=== PATIENT | male | born 2000 | race Caucasian/White ===

== ENCOUNTER 2019-07-13 17:54 | Emergency (ER) | payer BC ==
--- NOTE | 2019-07-13 18:08 | EDM.PDOC ---
ED HPI GENERAL MEDICAL PROBLEM - General Chief Complaint: Lower Extremity Injury/Pain Stated Complaint: PT HURT LT LEG Time Seen by Provider: 07/13/19 17:55 - History of Present Illness INITIAL COMMENTS - FREE TEXT/NARRATIVE: HISTORY AND PHYSICAL: History of present illness: This is a 19-year-old white male presents with concern of left knee injury that occurred yesterday he said some instability and discomfort subsequent. He denies other trauma concern he states this occurred when he jumped and landed wrong Review of systems: As per history of present illness and below otherwise all systems reviewed and negative. Past medical history: As per history of present illness and as reviewed below otherwise noncontributory. Surgical history: As per history of present illness and as reviewed below otherwise noncontributory. Social history: No reported history of drug or alcohol abuse. Family history: As per history of present illness and as reviewed below otherwise noncontributory. Physical exam: HEENT: Atraumatic, normocephalic, pupils reactive, negative for conjunctival pallor or scleral icterus, mucous membranes moist, throat clear, neck supple, nontender, trachea midline. Lungs: Clear to auscultation, breath sounds equal bilaterally, chest nontender. Heart: S1S2, regular, negative for clicks, rubs, or JVD. Abdomen: Soft, nondistended, nontender. Negative for masses or hepatosplenomegaly. Negative for costovertebral tenderness. Pelvis: Stable nontender. Genitourinary: Deferred. Rectal: Deferred. Extremities: Left knee has small swelling and mild pain this is not well localized is no crepitation joints is grossly stable CMS in neurovascular exam are unremarkable Neuro: Awake, alert, oriented. Cranial nerves II through XII unremarkable. Cerebellum unremarkable. Motor and sensory unremarkable throughout. Exam nonfocal. Diagnostics: X-ray left knee Therapeutics: To be determined Impression: 1 acute left knee injury Definitive disposition and diagnosis as appropriate pending reevaluation and review of above. Review of Systems - Review of Systems Review Of Systems: ROS reveals no pertinent complaints other than HPI. ED EXAM, GENERAL - Physical Exam Exam: See Below (See dictation) Departure - Departure Time of Disposition: 18:06 Disposition: Home, Self-Care 01 Condition: Good Clinical Impression: Knee injury - Discharge Information Additional Instructions: The following information is given to patients seen in the emergency department who are being discharged to home. This information is to outline your options for follow-up care. We provide all patients seen in our emergency department with a follow-up referral. The need for follow-up, as well as the timing and circumstances, are variable depending upon the specifics of your emergency department visit. If you don't have a primary care physician on staff, we will provide you with a referral. We always advise you to contact your personal physician following an emergency department visit to inform them of the circumstance of the visit and for follow-up with them and/or the need for any referrals to a consulting specialist. The emergency department will also refer you to a specialist when appropriate. This referral assures that you have the opportunity for followup care with a specialist. All of these measure are taken in an effort to provide you with optimal care, which includes your followup. Under all circumstances we always encourage you to contact your private physician who remains a resource for coordinating your care. When calling for followup care, please make the office aware that this follow-up is from your recent emergency room visit. If for any reason you are refused follow-up, please contact the [facility] emergency department at and asked to speak to the emergency department charge nurse. [facility] Professional [facility] [address] [place] [address], [address] [place] [address] Knee brace as directed crutches as directed Motrin/Tylenol as directed follow- up orthopedic surgery above call schedule routine appointment return as needed as discussed
--- NOTE | 2019-07-13 18:59 | CR ---
Indication: Pain. Injury. Technique: Three views of the left knee were obtained. Comparison: None Findings: No acute fracture or subluxation is identified. The joint spaces are well maintained. Impression: No acute fracture. Dictated by Akanksha Rhodes MD @ Jul 13 2019 6:57PM Signed by Dr. Akanksha Rhodes @ Jul 13 2019 6:57PM
== END 2019-07-13 18:55 | disposition home or self-care (01) ==
LOC: MW.ED 17:54
DX: S89.92XA Unspecified injury of left lower leg, initial encounter (principal); W17.89XA Other fall from one level to another, initial encounter; Y93.61 Activity, american tackle football
CPT/HCPCS: 73562-26-LT; 73562-LT; 99282; 99283-25

== ENCOUNTER 2019-11-18 11:16 | Day surgery (SDC) | payer BC ==
[~2019-11-18 11:16] MED LIST: 50% Dextrose in Water 50 ML Syringe IVPUSH PRN; Albuterol 0.083% 2.5 MG/3 ML Neb Soln NEB PRN; Atropine 0.1 MG/ML 10 ML Syringe IVPUSH PRN; Bupivacaine 0.5% 30 ML SDV ONE; Clindamycin Phosphate in D5W 900 MG in Premix Bag 1 BAG IV SCH; EPINEPHrine 1:10,000 1 MG/10 ML Syringe IVPUSH PRN; Lactated Ringers 1,000 ML IV SCH; Lidocaine 2% 5 ML SDV ONE; Midazolam 1 MG/ML 2 ML SDV ONE; Naloxone 0.4 MG/ML Syringe IVPUSH PRN; Ondansetron 4 MG/2 ML SDV ONE; Propofol 200 MG/20 ML SDV ONE; fentaNYL 100 MCG/2 ML SDV IVPUSH PRN; fentaNYL 250 MCG/5 ML SDV ONE
--- NOTE | 2019-11-18 12:15 | PCM.PREANE ---
Preanesthetic Assessment - Anesthesia/Transfusion/Family Hx Anesthesia History: Prior Anesthesia Without Reaction Family History of Anesthesia Reaction: No Transfusion History: No Prior Transfusion(s) - Review of Systems General: No Symptoms Pulmonary: No Symptoms Cardiovascular: No Symptoms Gastrointestinal: No Symptoms Neurological: No Symptoms - Physical Assessment NPO Status Date: 11/17/19 Vital Signs: Last Vital Signs Temp 96.8 F 11/18/19 11:30 Pulse 86 11/18/19 11:30 Resp 18 11/18/19 11:30 BP 157/73 H 11/18/19 11:30 Pulse Ox 98 11/18/19 11:30 Height: 5 ft 11 in Weight: 90.718 kg ASA Class: 1 Mental Status: Alert & Oriented x3 Airway Class: Mallampati = 2 Dentition: Reports: Normal Dentition ROM/Head Extension: Full Lungs: Clear to Auscultation, Normal Respiratory Effort Cardiovascular: Regular Rate, Regular Rhythm - Allergies Allergies/Adverse Reactions: Allergies Allergy/AdvReac Type Severity Reaction Status Date / Time codeine Allergy Hallucinati Verified 11/12/19 12:23 ons Penicillins Allergy Hives Verified 11/12/19 12:23 sulfamethoxazole Allergy Hives Verified 11/12/19 12:23 [From Bactrim] trimethoprim [From Bactrim] Allergy Hives Verified 11/12/19 12:23 - Blood Blood Available: No - Anesthesia Plan Pre-Op Medication Ordered: None - Acknowledgements Anesthesia Type Planned: General Anesthesia Pt an Appropriate Candidate for the Planned Anesthesia: Yes Alternatives and Risks of Anesthesia Discussed w Pt/Guardian: Yes Pt/Guardian Understands and Agrees with Anesthesia Plan: Yes Additional Comments: pmh: none PLAN: ga/lma PreAnesthesia Questionnaire HEENT History: Reports: Other (See Below) Other HEENT History: wears glasses Cardiovascular History: Reports: None Respiratory History: Reports: None Gastrointestinal History: Reports: None Genitourinary History: Reports: None Musculoskeletal History: Reports: None Neurological History: Reports: None Psychiatric History: Reports: None Endocrine/Metabolic History: Reports: None Hematologic History: Reports: None Immunologic History: Reports: None Oncologic (Cancer) History: Reports: None Dermatologic History: Reports: None - Past Surgical History Head Surgeries/Procedures: Reports: None HEENT Surgical History: Reports: Myringotomy w Tube(s), Tonsillectomy Cardiovascular Surgical History: Reports: None Respiratory Surgical History: Reports: None GI Surgical History: Reports: None Male Surgical History: Reports: None Endocrine Surgical History: Reports: None Neurological Surgical History: Reports: None Musculoskeletal Surgical History: Reports: None Oncologic Surgical History: Reports: None Dermatological Surgical History: Reports: None - SUBSTANCE USE Smoking Status *Q: Never Smoker Recreational Drug Use History: No - HOME MEDS Home Medications: Home Meds Acetaminophen/oxyCODONE [Percocet 325-5 MG] 1 each PO TID #21 tab 11/18/19 [Rx] - CURRENT (IN HOUSE) MEDS Current Meds: Current Medications Albuterol (Proventil Neb Soln) 2.5 mg NEB ONETIME PRN PRN Reason: Wheezing Atropine Sulfate (Atropine 0.1 Mg/Ml) 0.5 mg IVPUSH ASDIRECTED PRN PRN Reason: Hypo-perfusion Atropine Sulfate (Atropine 0.1 Mg/Ml) 1 mg IVPUSH ASDIRECTED PRN PRN Reason: Hypo-Perfusion Dextrose/Water (Dextrose 50% In Water) 50 ml IVPUSH ASDIRECTED PRN PRN Reason: Hypoglycemia Epinephrine HCl (Epinephrine 1:10,000) 1 mg IVPUSH ASDIRECTED PRN PRN Reason: ACLS Guidelines Fentanyl (Sublimaze) 50 - 100 mcg IVPUSH Q5M PRN PRN Reason: Pain Clindamycin Phosphate 900 mg/ (Premix) 50 mls @ 100 mls/hr IV ONCALL [facility] Last Admin: 11/18/19 12:11 Dose: 100 mls/hr Lactated Ringer's (Ringers, Lactated) 1,000 mls @ 100 mls/hr IV ASDIRECTED [facility] Last Admin: 11/18/19 12:09 Dose: 100 mls/hr Naloxone HCl (Narcan) 0.1 mg IVPUSH ASDIRECTED PRN PRN Reason: Respiratory Depression Discontinued Medications Bupivacaine HCl (Marcaine 0.5%) Confirm Administered Dose 30 ml .ROUTE .STK-MED ONE Stop: 11/18/19 10:31 Fentanyl (Sublimaze) Confirm Administered Dose 250 mcg .ROUTE .STK-MED ONE Stop: 11/18/19 09:45 Lidocaine (Xylocaine-Mpf 2%) Confirm Administered Dose 5 ml .ROUTE .STK-MED ONE Stop: 11/18/19 09:45 Midazolam HCl (Versed 1 Mg/Ml) Confirm Administered Dose 2 mg .ROUTE .STK-MED ONE Stop: 11/18/19 09:45 Ondansetron HCl (Zofran) Confirm Administered Dose 4 mg .ROUTE .STK-MED ONE Stop: 11/18/19 09:45 Propofol (Diprivan 20 Ml) Confirm Administered Dose 200 mg .ROUTE .STK-MED ONE Stop: 11/18/19 09:45
[2019-11-18] MEDS ORDERED: HYDROmorphone 2 MG/ML Syringe ONE (13:22)
[2019-11-18] MEDS ORDERED: fentaNYL 100 MCG/2 ML SDV ONE ×2 (14:05→14:29)
--- NOTE | 2019-11-18 14:31 | PCM.OPNOTE ---
- General Post-Op/Procedure Note Date of Surgery/Procedure: 11/18/19 Operative Procedure(s): left knee acl reconstruction with allograft Pre Op Diagnosis: left knee acl tear Post-Op Diagnosis: Same Anesthesia Technique: General ET Tube Primary Surgeon: Kwame Mancilla Electrician Wiring: Carmenza Brambila EBIleana in mLs: 25 Complications: None Condition: Good
--- NOTE | 2019-11-18 15:44 | PCM.POSTAN ---
POST ANESTHESIA ASSESSMENT - MENTAL STATUS Mental Status: Alert - VITAL SIGNS Vital Signs: Last Vital Signs Temp 36.8 C 11/18/19 14:53 Pulse 109 H 11/18/19 15:38 Resp 20 11/18/19 15:38 BP 131/67 11/18/19 15:38 Pulse Ox 96 11/18/19 15:38 - RESPIRATORY Respiratory Status: Respiratory Rate WNL - CARDIOVASCULAR CV Status: Pulse Rate WNL - GASTROINTESTINAL GI Status: No Symptoms - POST OP HYDRATION Hydration Status: Adequate & Stable
--- NOTE | 2019-11-18 16:56 | PCM48HPAN ---
Post Anesthesia Note - EVALUATION WITHIN 48HRS OF ANESTHETIC Vital Signs in Normal Range: Yes Patient Participated in Evaluation: Yes Respiratory Function Stable: Yes Airway Patent: Yes Cardiovascular Function Stable: Yes Hydration Status Stable: Yes Pain Control Satisfactory: Yes Nausea and Vomiting Control Satisfactory: Yes Mental Status Recovered: Yes Vital Signs: Last Vital Signs Temp 97.2 F 11/18/19 15:45 Pulse 95 11/18/19 16:15 Resp 16 11/18/19 16:15 BP 134/70 11/18/19 16:15 Pulse Ox 96 11/18/19 16:15
--- NOTE | 2019-11-18 17:51 | OR ---
SURGEON: Kwame Mancilla DATE OF PROCEDURE: 11/18/2019 PREOPERATIVE DIAGNOSIS: Left anterior cruciate ligament tear. POSTOPERATIVE DIAGNOSIS: Left anterior cruciate ligament tear. PROCEDURE: Left anterior cruciate ligament reconstruction using allograft. PRIMARY SURGEON: Kwame Mancilla DO. USED CAR LOT PORTER: IONA Conn. ROLE OF USED CAR LOT PORTER: Nurse practitioner, IONA Conn, played an essential role in assisting in this case, helping to position the patient, retract structures as needed, as well as suturing and cutting sutures as indicated. Her presence improved patient's safety and decreased operative time. ANESTHESIA: General endotracheal intubation. FLUID: Lactated Ringer's solution. ESTIMATED BLOOD LOSS: 25 mL. COMPLICATION: None. SPECIMEN: None. DISCHARGE DISPOSITION: Stable to PACU. HISTORY AND INDICATION FOR THE PROCEDURE: The patient is well known to me. I had seen him in clinic a few times. He had injured his left knee resulting in an ACL tear. MRI confirmed the above- mentioned diagnosis. Risks and benefits of the procedure were explained to the patient. Informed consent was obtained. DETAILS OF PROCEDURE: The patient was seen preoperatively by myself and the Anesthesia staff in the preoperative holding area where the operative site was marked. He was brought to the operative suite by Anesthesia staff where general anesthesia was administered. A well-padded tourniquet was placed on the left thigh. His right lower extremity was placed into a stirrup. His left thigh was bumped with a blanket to keep him in at least 15 degrees of flexion. The left lower extremity was then prepped and draped in a sterile manner. Time-out was called identifying the correct patient, the correct procedure, the correct site, and that antibiotics had been given within appropriate period of time. The left lower extremity was exsanguinated. Tourniquet was raised to 250 mmHg. The medial and lateral portals were then placed. I inspected the joint. The patellofemoral as well as medial and lateral compartments did not show any signs of cartilage damage. Although the MRI report did suspect a medial meniscus tear, none was found. No lateral meniscus tear was found. No plicae were seen in the gutters. The stump of the ACL was seen. I took a shaver and debrided this area. I exposed the lateral wall. I then used a bur to do a notchplasty so that there was adequate room for my ACL graft, which measured 10 mm. I then focused on my femoral tunnel. I used through an anterior medial portal the 2 mm back wall guide and then placed my guidewire out the lateral thigh after going through the posterolateral notch at about the 2:30 position. I then brought this out through the lateral thigh and then brought the wire into position where it turned colors. We used the measuring guide which measured 48 mm. I then used a 10 mm reamer to 25 mm depth and then used a [address] way out to the distal femur. I then passed my suture loop passer out through the lateral thigh and then I used a stand to hold this in place. After this had been accomplished, I focused on my tibia. I made an incision 3 fingerbreadths distal to the joint line, almost to the medial aspect of the tibia, and then used a 55-degree guide and placed it through the center of the tibial stump and then placed a guidewire through this and then removed the guide and then over- reamed to 10 mm. I then brought my loop back out through the tibia. My bankruptcy legal assistant had already the whipstitched the graft and attached it to our Alan button device. We then brought the entire device through into the knee passing the white suture over the green-white and solid green sutures out through the thigh. We then deployed the button, and I was able to put significant weight on this without any budging. I then brought my graft up using the white sutures to appropriate position until I could not bring it back any further. We then cycled the knee and then I placed a guidewire through the tibia, and then with the knee in approximately 20 degrees of flexion, placed my 10 mm interference screw which was a PEEK material. I then inspected the joint and then shaved a little of our extra material off and then probed it, which provided good stability. Anterior drawer was then negative. I had my bankruptcy legal assistant close the incisions with 3-0 nylon in a horizontal mattress fashion followed by Betadine-soaked Adaptic, fluffs, ABDs, and Morgan wrap. The patient was allowed to awaken from general anesthesia, taken to PACU in stable condition. [id number] / MODL /[id number] PENNIE
== END 2019-11-18 17:06 | disposition home or self-care (01) ==
LOC: MW.SDS 11:16
PROVIDERS: ATTEND Orthopaedic Surgery
DX: S83.512A Sprain of anterior cruciate ligament of left knee, initial encounter (principal); Z88.2 Allergy status to sulfonamides; Z88.5 Allergy status to narcotic agent; Z88.0 Allergy status to penicillin
CPT/HCPCS: 29888; J0131; J1170; J2001; J2250; J2405; J2704; J3010; J3490; J7120; 01400